=== PATIENT | male | born 1995 | race Caucasian/White ===

== ENCOUNTER 2024-09-28 06:19 | Emergency (ER) | payer MEDICAID, SELFPAY ==
[2024-09-28] VITALS (7 sets, daily range): BP systolic 149–180; BP diastolic 98–109; PULSE 84–110; RESP 1–19; TEMP 36.4–36.6; O2SAT 97–100; BMI 29.1
--- NOTE | 2024-09-28 06:34 | EKG_ITS ---
[facility] Test Date: 2024-09-28 Pat Name: CONSUELO BAJWA Department: Room: - Gender: Male [employer]: : 1995 Requested By: Andre Chavis Order Number: [id number] Reading MD: Andre Chavis Measurements Intervals [place] Rate: 106 P: 70 [place]: 148 QRS: 70 QRSD: 99 T: 60 QT: 308 QTc: 410 Interpretive Statements SINUS TACHYCARDIA NONSPECIFIC T-WAVE ABNORMALITY ABNORMAL RHYTHM ECG Compared to ECG 05/10/2020 13:25:36 T-wave abnormality now present /store/S0/[id number].pdf
--- NOTE | 2024-09-28 06:36 | PD.EDRME ---
Rapid Medical Screening Exam E Arrival date/time: 09/28/24 06:19 29-year-old male with a history of type 1 diabetes presents to the emergency room with a chief complaint of dizziness, elevated blood pressure, and fatigue. Patient states he has a history of being in DKA. Patient denies any nausea vomiting. I have greeted and performed a focused initial assessment of this patient. A comprehensive ED assessment and evaluation of the patient, analysis of all test results, and completion of the medical decision making process will be conducted by additional ED providers. Chief Complaint: Headache Vital signs: Vital Signs Temperature 97.8 F 09/28/24 06:25 Pulse Rate 110 H 09/28/24 06:25 Respiratory Rate 19 09/28/24 06:25 Blood Pressure 180/109 H 09/28/24 06:25 Pulse Oximetry (%) 99 09/28/24 06:25 Oxygen Delivery Method Room Air 09/28/24 06:25 Vital signs reviewed by provider: Yes
[2024-09-28 07:13] LABS: Basophils % (Auto) 1 % (0-2.5); Eosinophils # (Auto) 0.2 Thou/mm3 (0.0-0.5); Eosinophils % (Auto) 4 % (0-10); Hematocrit 40.3 % (41.0-53.0); Hemoglobin 14.2 g/dL (13.5-16.0); Immature Granulocytes % (Auto) 0 % (0-0); Immature Granulocytes Auto 0.02 Thou/mm3 (0.00-0.00); Lymphocytes # (Auto) 1.8 Thou/mm3 (1.0-4.8); Lymphocytes % (Auto) 39 % (10-50); Mean Corpuscular HGB Conc 35.2 g/dl (31.0-37.0); Mean Corpuscular Hemoglobin 27.7 pg (25.0-35.0); Mean Corpuscular Volume 79 fL (80-100); Monocytes # (Auto) 0.4 Thou/mm3 (0.0-0.8); Monocytes % (Auto) 8 % (0-12); Neutrophils # (Auto) 2.2 Thou/mm3 (1.8-7.7); Neutrophils % (Auto) 48 % (37-80); Nucleated Red Blood Cell % 0 /100 WBC (0); Platelet Count 180 Thou/mm3 (140-440); RDW Standard Deviation 34.6 fL (35.1-43.9); Red Blood Count 5.13 Miln/mm3 (4.50-5.90); White Blood Count 4.6 Thou/mm3 (3.8-10.6)
--- NOTE | 2024-09-28 07:13 | EDNOTE_ITS ---
ED General RME/HPI General Chief complaint: Headache Stated complaint: Headache,high BP, dizzy, high blood sugar Arrival date/time: 09/28/24 06:19 RME / HPI RME / HPI narrative: This patient is a 29-year-old male with past medical history of type 1 diabetes on insulin therapy presented to the ED with 1 day history of headache associated with high blood pressure. Patient reported that he woke up this morning at 6 AM due to headache and checked his blood pressure at home which he found to be elevated around 173/108. He denied any light headedness or dizziness, chest pain, shortness of breath, cough, fever chills abdominal discomfort, nausea vomiting or any other significant complaints. He gave himself insulin last night and 15 units which he uses every day. His blood sugar this morning was 121 mg/dL. He reported that he slept at 11 PM and usually sleeps early at the night. Patient lives with his mom at home. He denied taking any blood pressure medications and reported that he was admitted previously for DKA. Vitals revealed blood pressure 180/109 dropped to 149/98, heart rate 110s--> 87, respiratory rate 19 and afebrile. He was saturating well on room air. Labs were showing white count 4.6, hemoglobin 14.2, MCV 79. Chemistry panel showed sodium 143, potassium 3.8, chloride 104. Bicarb 32.3. Kidney functions showed BUN 15 and creatinine 1.0. Blood glucose 115. Troponin I was negative. BHB was negative.EKG showed sinus tachycardia with QTc 410. No axis deviation seen. Differentials include tension headache, headache likely related to hypoglycemia, undiagnosed hypertension, dehydration related to type 1 diabetes PMH: As above PSH: Nonsignificant SH: Used to drink alcohol socially only in the past. Denies smoking or use of illicit drug use. Allergies: No known drug allergies Home medications: Insulin 50 units, Humalog based on sliding scale. No other medications 8: 20 patient already reported that his headache is resolved after taking Tylenol at home. He was reported that it might be related to hypoglycemia or dehydration due to his type 1 diabetes. All of the diagnoses including life- threatening diagnoses of [place] or DKA were ruled out. Patient can be discharged to home. Patient was found to have elevated blood pressure likely due to headache. Troponin I and BHB was negative. Blood sugars were within normal limits. Patient was advised to follow-up with his PCP as outpatient within a week In case of an emergency patient was advised to come back to the ER or call 911 MD complaint: Headache with elevated blood pressure Onset (ago): day(s) (1) Associated symptoms: headaches Treatments prior to arrival: other (Tylenol) Related Data Home Medications ?Medication ?Instructions ?Recorded ?Confirmed insulin lispro 100 unit/mL See Rx Instructions .Route .COMPLEX 03/27/20 01/02/21 subcutaneous pen (Humalog KwikPen (U-100) Insulin) lisinopril 5 mg tablet 5 mg PO QDAY 01/02/21 Previous Rx's ?Medication ?Instructions ?Recorded insulin glargine 100 unit/mL (3 50 unit (0.5 mL) subcu t BID #15 mL 03/28/20 mL) subcutaneous pen (Lantus Solostar U-100 Insulin) Allergies Allergy/AdvReac Type Severity Reaction Status Date / Time No Known Allergies Allergy Verified 01/02/21 07:18 Review of Systems Review of Systems Systems Reviewed: All systems reviewed, normal except as documented Past Medical History Past Medical History ENDOCRINE: Positive Diabetes Mellitus Type 1 Family History FAMILY HISTORY: Positive Family Cancer (Lung, Bone, and Pancreatic) Social History SMOKING STATUS: Never smoker SUBSTANCE USE: does not use ED Exam Narrative Physical exam: GENERAL APPEARANCE: AxOx4, generally well-appearing male in no acute distress. Saturating well on room air. HEENT: NC, AT. MMM. EOMI, clear conjunctiva, oropharynx clear. NECK: Supple without lymphadenopathy. No stiffness or restricted ROM. HEART: Sinus tachycardia with regular rhythm, normal S1/S2, no m/r/g LUNGS: CTAB, moving air well. No crackles or wheezes are heard. ABDOMEN: Soft, nontender, nondistended with good bowel sounds heard. BACK: No CVAT, no obvious deformity. EXTREMITIES: Without cyanosis, clubbing or edema. NEUROLOGICAL: Grossly nonfocal. Alert and oriented, moving all 4 extremities. CN not formally tested but appear grossly intact. Observed to ambulate with normal gait. Skin: Acne vulgaris seen on his nose and cheeks Psych: Appropriate mood and affect Course Course Course Narrative: This patient is a 29-year-old male with past medical history of type 1 diabetes on insulin therapy presented to the ED with 1 day history of headache associated with high blood pressure. Patient reported that he woke up this morning at 6 AM due to headache and checked his blood pressure at home which he found to be elevated around 173/108. He denied any light headedness or dizziness, chest pain, shortness of breath, cough, fever chills abdominal discomfort, nausea vomiting or any other significant complaints. He gave himself insulin last night and 15 units which he uses every day. His blood sugar this morning was 121 mg/dL. He reported that he slept at 11 PM and usually sleeps early at the night. Patient lives with his mom at home. He denied taking any blood pressure medications and reported that he was admitted previously for DKA. Vitals revealed blood pressure 180/109 dropped to 149/98, heart rate 110s--> 87, respiratory rate 19 and afebrile. He was saturating well on room air. Labs were showing white count 4.6, hemoglobin 14.2, MCV 79. Chemistry panel showed sodium 143, potassium 3.8, chloride 104. Bicarb 32.3. Kidney functions showed BUN 15 and creatinine 1.0. Blood glucose 115. Troponin I was negative. BHB was negative.EKG showed sinus tachycardia with QTc 410. No axis deviation seen. Differentials include tension headache, headache likely related to hypoglycemia, undiagnosed hypertension, dehydration related to type 1 diabetes 8: 20 patient already reported that his headache is resolved after taking Tylenol at home. He was reported that it might be related to hypoglycemia or dehydration due to his type 1 diabetes. All of the diagnoses including life- threatening diagnoses of [place] or DKA were ruled out. Patient can be discharged to home. Patient was found to have elevated blood pressure likely due to headache. Troponin I and BHB was negative. Blood sugars were within normal limits. Patient was advised to follow-up with his PCP as outpatient within a week In case of an emergency patient was advised to come back to the ER or call 911 Quality Measures none Orders Category Date Time Status EKG (ED ONLY) *Do not use* NOW Care 09/28/24 06:35 Completed EKG (ED Only) Stat Exams 09/28/24 06:34 Draft BNP [B-Type Natriuretic Peptide] Stat Lab 09/28/24 07:07 Completed Beta Hydroxybutyrate Stat Lab 09/28/24 07:07 Completed CBC Stat Lab 09/28/24 07:07 Completed CMP [Comprehensive Metabolic Panel] Stat Lab 09/28/24 07:07 Completed Troponin I Stat Lab 09/28/24 07:07 Completed UA [Urinalysis] Stat Lab 09/28/24 06:34 Ordered Urine Culture Stat Lab 09/28/24 06:34 Ordered Vital Signs Vital signs: Vital Signs Temperature 97.8 F 09/28/24 06:25 Pulse Rate 110 H 09/28/24 06:25 Respiratory Rate 19 09/28/24 06:25 Blood Pressure 180/109 H 09/28/24 06:25 Pulse Oximetry (%) 99 09/28/24 06:25 Oxygen Delivery Method Room Air 09/28/24 06:25 Discharge Plan Plan Patient Disposition: HOME (Self Care) Prescriptions/Referrals Prescriptions/Med Rec: No Action insulin lispro [Humalog KwikPen Insulin] 100 unit/mL Insulin Pen See Rx Instructions .ROUTE .COMPLEX Rx Instructions: per sliding scale subcutaneous. Insulin scale starts at 250 blood sugar. Lantus Solostar U-100 Insulin 100 unit/mL (3 mL) insulin pen 50 unit subcut BID Qty: 15 0RF Rx Instructions: Please provide with corresponding needles and caps. lisinopril 5 mg tablet 5 mg PO QDAY Referrals: Juan Calixto MD [Primary Care Provider] - In 1 week Problem List Clinical Impression: Headache, Transient elevated blood pressure Patient/Caregiver Discharge Instructions Other Activity Instructions:: Patient was found to have elevated blood pressure likely due to headache. Troponin I and BHB was negative. Blood sugars were within normal limits. Patient was advised to follow-up with his PCP as outpatient within a week In case of an emergency patient was advised to come back to the ER or call 911 Print Language: Croatian Stand Alone Forms: [employer] [facility] Info., Patient Portal Info Letter MDM Narrative MDM hospital course (for use when minimal MDM required): This patient is a 29-year-old male with past medical history of type 1 diabetes on insulin therapy presented to the ED with 1 day history of headache associated with high blood pressure. Patient reported that he woke up this morning at 6 AM due to headache and checked his blood pressure at home which he found to be elevated around 173/108. He denied any light headedness or dizziness, chest pain, shortness of breath, cough, fever chills abdominal discomfort, nausea vomiting or any other significant complaints. He gave himself insulin last night and 15 units which he uses every day. His blood sugar this morning was 121 mg/dL. He reported that he slept at 11 PM and usually sleeps early at the night. Patient lives with his mom at home. He denied taking any blood pressure medications and reported that he was admitted previously for DKA.Denied Vitals revealed blood pressure 180/109 dropped to 149/98, heart rate 110s--> 87, respiratory rate 19 and afebrile. He was saturating well on room air. Labs were showing white count 4.6, hemoglobin 14.2, MCV 79. Chemistry panel showed sodium 143, potassium 3.8, chloride 104. Bicarb 32.3 metabolic alkalosis. Kidney functions showed BUN 15 and creatinine 1.0. Blood glucose 115. Troponin I was negative. BHB was negative.EKG showed sinus tachycardia with QTc 410. No axis deviation seen. Differentials include tension headache, headache likely related to hypoglycemia, undiagnosed hypertension, dehydration related to type 1 diabetes 8: 20 patient already reported that his headache is resolved after taking Tylenol at home. He was reported that it might be related to hypoglycemia or dehydration due to his type 1 diabetes. All of the diagnoses including life-threatening diagnoses of [place] or DKA were ruled out. Patient can be discharged to home. Patient was found to have elevated blood pressure likely due to headache. Troponin I and BHB was negative. Blood sugars were within normal limits. Patient was advised to follow-up with his PCP as outpatient within a week In case of an emergency patient was advised to come back to the ER or call 911 EKG Interpretation EKG #1: EKG Interpretation: Differentials include tension headache, headache likely related to hypoglycemia, undiagnosed hypertension, dehydration related to type 1 diabetes Medication Administration(s) EKG showed sinus tachycardia with QTc 410. No axis deviation seen. Diagnosis Diagnoses ruled out and/or further discussions: 8: 20 patient already reported that his headache is resolved after taking Tylenol at home. He was reported that it might be related to hypoglycemia or dehydration due to his type 1 diabetes. All of the diagnoses including life- threatening diagnoses of [place] or DKA were ruled out. Patient can be discharged to home. Patient was found to have elevated blood pressure likely due to headache. Troponin I and BHB was negative. Blood sugars were within normal limits. Patient was advised to follow-up with his PCP as outpatient within a week In case of an emergency patient was advised to come back to the ER or call 911
--- NOTE | 2024-09-28 07:22 | PC.NURSE ---
Pt had a slight headache last night. Denies MIXON or any pain/discomfort at this time
[2024-09-28 07:37] LABS: B-Type Natriuretic Peptide 20 pg/mL (0-100)
[2024-09-28 07:38] LABS: Alanine Aminotransferase 16 U/L (10-49); Albumin, Serum 3.8 gm/dL (3.5-5.0); Albumin/Globulin Ratio 1.5 (1.2-2.2); Alkaline Phosphatase 94 U/L (46-116); Anion Gap 7 (7-16); Aspartate Amino Transferase 15 U/L (0-34); BUN/Creatinine Ratio 15 Ratio (12-20); Bilirubin,Total 0.5 mg/dL (0.3-1.2); Blood Urea Nitrogen 15 mg/dL (9-23); Calcium 8.5 mg/dL (8.3-10.6); Calcium (Corrected) 8.7 mg/dL (8.5-10.1); Carbon Dioxide 32.3 mMol/L (20.0-31.0); Chloride 104 mMol/L (98-107); Estimated Creatinine Clearance 129.5 mL/min (>60); Globulin 2.5 gm/dL (2.3-3.5); Glucose 115 mg/dL (74-106); Osmolality,Calculated 286 (275-295); Potassium 3.8 mMol/L (3.4-5.1); Sodium 143 mMol/L (136-145); Total Protein 6.3 gm/dL (5.7-8.2); Troponin I < 0.020 ng/mL (0.0-0.045); eGFR > 60 See Note
[2024-09-28 07:41] LABS: Beta Hydroxybutyrate 0.2 mmol/L (<0.6)
== END 2024-09-28 10:05 | disposition home or self-care (01) ==
PROVIDERS: Nurse Practitioner Family; Emergency Provider Emergency Medicine; PCP Family Medicine
DX: R51.9 Headache, unspecified (principal); R03.0 Elevated blood-pressure reading, without diagnosis of hypertension; R00.0 Tachycardia, unspecified
CPT/HCPCS: 36415; 80053; 81001; 82010; 83690; 83880; 84484; 85025; 87086; 93005; 99283

== ENCOUNTER → 2025-03-22 | Outpatient (CLI) | payer OTHER, SELFPAY ==
[2025-03-22 11:07] LABS: Glucose Estimated Average 318 mg/dL (80-131); Hemoglobin A1C 12.7 % Hgb (4.8-6.0)
== END | disposition home or self-care (01) ==
LOC: COPL 09:31
PROVIDERS: PCP Family Medicine; Referring Provider Student in an Organized Health Care Education/Training Program; Visit Provider Student in an Organized Health Care Education/Training Program
DX: E10.65 Type 1 diabetes mellitus with hyperglycemia (principal)
CPT/HCPCS: 36415; 83036

== ENCOUNTER → 2025-04-20 | Outpatient (CLI) | payer OTHER, SELFPAY ==
[2025-04-20 11:45] LABS: Basophils # (Auto) 0.0 Thou/mm3 (0.0-0.2); Basophils % (Auto) 1 % (0-2.5); Eosinophils # (Auto) 0.2 Thou/mm3 (0.0-0.5); Eosinophils % (Auto) 6 % (0-10); Hematocrit 37.3 % (41.0-53.0); Hemoglobin 12.4 g/dL (13.5-16.0); Immature Granulocytes Auto 0.01 Thou/mm3 (0.00-0.00); Lymphocytes # (Auto) 1.9 Thou/mm3 (1.0-4.8); Lymphocytes % (Auto) 44 % (10-50); Mean Corpuscular HGB Conc 33.2 g/dl (31.0-37.0); Mean Corpuscular Hemoglobin 27.1 pg (25.0-35.0); Mean Corpuscular Volume 81 fL (80-100); Monocytes # (Auto) 0.4 Thou/mm3 (0.0-0.8); Monocytes % (Auto) 9 % (0-12); Neutrophils # (Auto) 1.7 Thou/mm3 (1.8-7.7); Neutrophils % (Auto) 40 % (37-80); Nucleated Red Blood Cell # 0.00 Thou/mm3 (0.00-0.00); Nucleated Red Blood Cell % 0 /100 WBC (0); Platelet Count 241 Thou/mm3 (140-440); RDW Standard Deviation 35.8 fL (35.1-43.9); Red Blood Count 4.58 Miln/mm3 (4.50-5.90); White Blood Count 4.3 Thou/mm3 (3.8-10.6)
[2025-04-20 12:01] LABS: Creatinine MALB Rnd Ur 73 mg/dL (30-125); Microalbumin Creat Ratio 266 mg/gCrea (<30); Microalbumin, Random Urine 194 mg/L (0-300)
[2025-04-20 12:14] LABS: Alanine Aminotransferase 13 U/L (10-49); Albumin, Serum 3.7 gm/dL (3.5-5.0); Albumin/Globulin Ratio 1.4 (1.2-2.2); Alkaline Phosphatase 109 U/L (46-116); Anion Gap 5 (7-16); Aspartate Amino Transferase 15 U/L (0-34); BUN/Creatinine Ratio 15 Ratio (12-20); Bilirubin,Total 0.3 mg/dL (0.3-1.2); Blood Urea Nitrogen 18 mg/dL (9-23); Calcium 9.0 mg/dL (8.3-10.6); Calcium (Corrected) 9.2 mg/dL (8.5-10.1); Carbon Dioxide 33.1 mMol/L (20.0-31.0); Cardiac Risk Estimate 3.1 RATIO (4.0-6.7); Chloride 104 mMol/L (98-107); Cholesterol 129 mg/dL (132-200); Creatinine (Component) 1.2 mg/dL (0.6-1.3); Globulin 2.7 gm/dL (2.3-3.5); Glucose 212 mg/dL (74-106); HDL Cholesterol 42 mg/dL (40-60); LDL Cholesterol,Calculated 72 mg/dL (0-130); Osmolality,Calculated 291 (275-295); Potassium 4.2 mMol/L (3.4-5.1); Sodium 142 mMol/L (136-145); Thyroid Stimulating Hormone 2.25 uIU/mL (0.55-4.78); Total Protein 6.4 gm/dL (5.7-8.2); Triglycerides 74 mg/dL (30-150); eGFR > 60 See Note
== END | disposition home or self-care (01) ==
LOC: COPL 10:14
PROVIDERS: PCP Family Medicine; Referring Provider Student in an Organized Health Care Education/Training Program; Visit Provider Student in an Organized Health Care Education/Training Program
DX: Z00.00 Encounter for general adult medical examination without abnormal findings (principal)
CPT/HCPCS: 36415; 80053; 80061; 82043; 82570; 84443; 85025